=== PATIENT | female | born 1975 | race Two or more races ===

== ENCOUNTER 2017-02-28 00:10 | Observation (INO) | payer BC, OTHER ==
--- NOTE | 2017-02-28 01:23 | PDOC ---
History of Present Illness - General History Source: Patient Exam Limitations: No Limitations - History of Present Illness Initial Comments: 02/28/17 01:38 The patient is a 42 year old female with significant past medical history of recently diagnosed with hypertension who presents to the ED for mid sternal chest pressure few hours prior to arrival. Patient reports her chest pressure radiates up to her neck. She endorses SOB. States she never experience similar symptoms in the past. States about 1 hour prior to arrival, she was not feeling well and decided to take 81 mg aspirin and subsequently felt her blood pressure and heart rate decreased. Denies diaphoresis, lightheadedness, shoulder pain, arm pain, leg swelling, nausea, or vomiting. Patient reports 2 weeks ago she was walking to the bathroom when she had a syncopal episode. Subsequently, she visited her PMD where she had cardio work up done including a ECHO. Patient was informed that she had a mitral valve prolapse. At that time, she was started on metoprolol because she was noted to have elevated blood pressure and fast heart rate. She was referred to be seen by Dr. Ha, fire medic, who she has not seen yet. The patient denies fever, chills, cough, abdominal pain, and diarrhea. Allergies: penicillin Social History: No alcohol, tobacco, or drug use reported. Past Surgical History: None reported PCP: Dr. Chito Mendoza <Sue Blanco - Last Filed: 02/28/17 04:00> - General History Source: Patient <Nikki Alexan - Last Filed: 02/28/17 19:20> - General Chief Complaint: Chest Pain Stated Complaint: CHEST PRESSURE Time Seen by Provider: 02/28/17 01:23 Past History <Sue Blanco - Last Filed: 02/28/17 04:00> - Psycho/Social/Smoking Cessation Hx Suicidal Ideation: No Smoking History: Never smoked Have you smoked in the past 12 months: No Information on smoking cessation initiated: No Hx Alcohol Use: No Drug/Substance Use Hx: No <Hieu Alex - Last Filed: 02/28/17 19:20> - Past Medical History Allergies/Adverse Reactions: Allergies Allergy/AdvReac Type Severity Reaction Status Date / Time Penicillins Allergy Verified 02/28/17 01:13 Home Medications: Ambulatory Orders Metoprolol Succinate [Toprol Xl -] 25 mg PO DAILY 02/28/17 Review of Systems - Review of Systems Able to Perform ROS?: Yes Comments:: 02/28/17 01:38 CONSTITUTIONAL: Absent: fever, chills, diaphoresis, generalized weakness, malaise, loss of appetite HEENT: Absent: rhinorrhea, nasal congestion, throat pain, throat swelling, difficulty swallowing, mouth swelling, ear pain, eye pain, visual Changes CARDIOVASCULAR: +chest pressure radiating up the neck, low blood pressure and low heart rate Absent: palpitations, lightheadedness, peripheral edema RESPIRATORY: Absent: cough, shortness of breath, dyspnea with exertion, orthopnea, wheezing, stridor, hemoptysis GASTROINTESTINAL: Absent: abdominal pain, abdominal distension, nausea, vomiting, diarrhea, constipation, melena, hematochezia GENITOURINARY: Absent: dysuria, frequency, urgency, hesitancy, hematuria, flank pain, genital pain MUSCULOSKELETAL: Absent: myalgia, arthralgia, joint swelling SKIN: Absent: rash, itching, pallor NEUROLOGIC: Absent: headache, focal weakness or paresthesias, dizziness, unsteady gait, seizure, mental status changes, bladder or bowel incontinence <Sue Blanco - Last Filed: 02/28/17 04:00> *Physical Exam - Vital Signs Last Vital Signs Temp Pulse Resp BP Pulse Ox 98.3 F 72 20 168/93 100 02/28/17 01:13 02/28/17 01:13 02/28/17 01:13 02/28/17 01:13 02/28/17 01:13 - Physical Exam Comments: 02/28/17 01:39 GENERAL: Well developed, well nourished. Awake and alert. No acute distress. HEENT: Normocephalic, atraumatic. PERRLA, EOMI. No conjunctival pallor. Sclera are non- icteric. Moist mucous membranes. Oropharynx is clear. NECK: Supple. Full ROM. No JVD. Carotid pulses 2+ and symmetric, without bruits. No thyromegaly. No lymphadenopathy. CARDIOVASCULAR: Regular rate and rhythm. No murmurs, rubs, or gallops. Distal pulses are 2+ and symmetric. PULMONARY: No evidence of respiratory distress. Lungs clear to auscultation bilaterally. No wheezing, rales or rhonchi. ABDOMINAL: Soft. Non-tender. Non-distended. No rebound or guarding. No organomegaly. Normoactive bowel sounds. MUSCULOSKELETAL Normal range of motion at all joints. No bony deformities or tenderness. No CVA tenderness. EXTREMITIES: No cyanosis. No clubbing. No edema. No calf tenderness. SKIN: Warm and dry. Normal capillary refill. No rashes. No jaundice. NEUROLOGICAL: Alert, awake, appropriate. Cranial nerves 2-12 intact. No deficits to light touch and temperature in face, upper extremities and lower extremities. No motor deficits in the in face, upper extremities and lower extremities. Normoreflexic in the upper and lower extremities. Normal speech. <Sue Blanco - Last Filed: 02/28/17 04:00> - Vital Signs Last Vital Signs Temp Pulse Resp BP Pulse Ox 98.3 F 72 20 168/93 100 02/28/17 01:13 02/28/17 01:13 02/28/17 01:13 02/28/17 01:13 02/28/17 01:13 <Hieu Alex - Last Filed: 02/28/17 19:20> Heart Score/ECG Review - ECG Impressions Comment:: 02/28/17 01:45 NSR @75bpm Normal ECG <Sue Blanco - Last Filed: 02/28/17 04:00> ED Treatment Course - LABORATORY CBC & Chemistry Diagram: 02/28/17 01:42 02/28/17 01:42 <Sue Blanco - Last Filed: 02/28/17 04:00> - LABORATORY CBC & Chemistry Diagram: 02/28/17 01:42 02/28/17 01:42 <Hieu Alex - Last Filed: 02/28/17 19:20> Medical Decision Making - Medical Decision Making 02/28/17 02:[address] Chito Mendoza (via answering service) at 2:35 Awaiting call back 02/28/17 03:36 Second call placed to Dr. Mendoza (via answering service) at 3:36 Awaiting call back 02/28/17 04:00 Patient's case discussed with Dr. Mendoza at 4:00 <Sue Blanco - Last Filed: 02/28/17 04:00> - Medical Decision Making 02/28/17 19:18 Dr. Alex: The scribe's documentation has been prepared under my direction and personally reviewed by me in its entirery. I confirm that the note above accurately reflects all work, treatment, procedures, and medical decision making performed by me. Cardiac enzymes are negative. However patient's blood pressure. Patient admit for cardiac evaluation, and monitoring of blood pressure <Hieu Alex - Last Filed: 02/28/17 19:20> *DC/Admit/Observation/Transfer - Attestations Scribe Attestion: 02/28/17 01:39 Documentation prepared by Sue Blanco, acting as medical asst for Hieu Alex MD/DO. <Sue Blanco - Last Filed: 02/28/17 04:00> - Discharge Dispostion Admit: Yes <Hieu Alex - Last Filed: 02/28/17 19:20> Diagnosis at time of Disposition: Chest pain Qualifiers: Chest pain type: unspecified Qualified Code(s): R07.9 - Chest pain, unspecified - Referrals
[2017-02-28] MEDS ORDERED: ASPIRIN 81 MG CHEWABLE TABLETS ONE (01:24)
[2017-02-28 01:25] VITALS: BMI 22.7
[2017-02-28 01:52] LABS: BASOPHIL 0.5 % (0-2.0); EOSINOPHIL 1.9 % (0-4.5); MEAN CELL VOLUME 67.6 fl (80-96); NEUTROPHILS 49.5 % (42.8-82.8); PLATELET COUNT 213 K/MM3 (134-434); WHITE BLOOD COUNT 8.7 K/mm3 (4.0-10.0)
[2017-02-28 02:03] LABS: INR 1.1 (0.82-1.09); PROTHROMBIN TIME (PATIENT) 12.1 SEC (9.98-11.88)
[2017-02-28 02:13] LABS: ALBUMIN 3.8 g/dl (3.4-5.0); ANION GAP 10 (8-16); CALCIUM 8.7 mg/dL (8.5-10.1); CO2 28 mmol/L (21-32); CREATININE 0.8 mg/dL (0.55-1.02); GLUCOSE,RANDOM 114 mg/dL (74-106); MAGNESIUM 2.2 mg/dL (1.8-2.4); SGOT/AST 18 U/L (15-37); SGPT/ALT 25 U/L (12-78); TOT PROT 7.1 g/dl (6.4-8.2)
[2017-02-28 02:13] LABS: URINE APPEARANCE CLEAR; URINE BILIRUBIN NEGATIVE (NEGATIVE); URINE COLOR COLORLESS; URINE GLUCOSE (UA) NEGATIVE (NEGATIVE); URINE KETONE NEGATIVE (NEGATIVE); URINE NITRITE NEGATIVE (NEGATIVE); URINE PROTEIN NEGATIVE (NEGATIVE); URINE UROBILINOGEN NEGATIVE E.U./dl (0.2-1.0)
[2017-02-28 02:15] LABS: URINE BLOOD 3+ (NEGATIVE); URINE LEUK ESTERASE TRACE (NEGATIVE)
[2017-02-28 02:16] LABS: URINE BACTERIA RARE /hpf (NONE SEEN); URINE RBC 49 /hpf (0-3); URINE WBC 3 /hpf (3-5)
[2017-02-28 02:17] LABS: ALK PHOS 103 U/L (45-117); BILIRUBIN,TOTAL 0.3 mg/dL (0.2-1.0); TROPONIN I < 0.02 ng/ml (0.00-0.05)
[2017-02-28] MEDS ORDERED: METOPROLOL TARTRATE 5 MG/5 ML VIAL IVPUSH ONE (02:34)
[2017-02-28 05:14] LABS: ANISOCYTOSIS 2+; HYPOCHROMIA 2+; MICROCYTOSIS 2+; OVALOCYTES 1+; POLYCHROMASIA 1+
[2017-02-28] MEDS ORDERED: ACETAMINOPHEN 325 MG TABLET (FP) PO PRN (05:54)
[2017-02-28 09:16] LABS: TROPONIN I < 0.02 ng/ml (0.00-0.05)
--- NOTE | 2017-02-28 09:23 | HP ---
Admitting History and Physical - Primary Care Physician PCP: Chito Mendoza - Admission Chief Complaint: chest tightness History of Present Illness: yesterday evening developed chest tighness and pressure radiating to her neck, BP was 160/100, HR 54 at home. took antacid and eccedrin without help, pain continued so pt came to er. still has pain-describes as heart working too hard especially when she changes position radiating towards neck and back. no nausea, no vomiting, no LOC History Source: Patient Limitations to Obtaining History: No Limitations - Past Medical History Cardiovascular: Yes: HTN (pt developed higher blood pressures past 2 weeks, was started on metoprolol) ...: No - Past Surgical History Past Surgical History: Yes: Appendectomy - Smoking History Smoking history: Never smoked Have you smoked in the past 12 months: No - Alcohol/Substance Use Hx Alcohol Use: No - Social History Usual Living Arrangement: Yes: With Spouse ADL: Independent History of Recent Travel: No Home Medications - Allergies Allergies/Adverse Reactions: Allergies Allergy/AdvReac Type Severity Reaction Status Date / Time Penicillins Allergy Verified 02/28/17 01:13 - Home Medications Home Medications: Ambulatory Orders Metoprolol Succinate [Toprol Xl -] 25 mg PO DAILY 02/28/17 Family Disease History - Family Disease History Family History: Denies Review of Systems - Review of Systems Constitutional: reports: Lethargy, Weakness Eyes: reports: No Symptoms HENT: reports: No Symptoms Neck: reports: No Symptoms Cardiovascular: reports: Chest Pain, Palpitations (as noted in history) Respiratory: reports: No Symptoms Gastrointestinal: reports: No Symptoms Genitourinary: reports: No Symptoms Integumentary: reports: No Symptoms Neurological: reports: No Symptoms Endocrine: reports: No Symptoms Hematology/Lymphatic: reports: No Symptoms Psychiatric: reports: Other (has had less energy and feels more down lately) Physical Examination Vital Signs: Vital Signs Temperature 98.7 F 02/28/17 07:54 Pulse Rate 76 02/28/17 07:54 Respiratory Rate 20 02/28/17 07:54 Blood Pressure 139/91 02/28/17 07:54 O2 Sat by Pulse Oximetry (%) 99 02/28/17 04:13 Constitutional: Yes: Well Nourished, Calm Eyes: Yes: Conjunctiva Clear HENT: Yes: Normocephalic Neck: Yes: Trachea Midline Cardiovascular: Yes: Regular Rate and Rhythm Respiratory: Yes: CTA Bilaterally Gastrointestinal: Yes: Normal Bowel Sounds, Soft Edema: No Peripheral Pulses WNL: Yes Imaging - Results Chest X-ray: Image Reviewed EKG: Image Reviewed Problem List - Problems (1) Chest pain Code(s): R07.9 - CHEST PAIN, UNSPECIFIED Qualifiers: Chest pain type: unspecified Qualified Code(s): R07.9 - Chest pain, unspecified Assessment/Plan first set of cardiac enzyme is negative, EKG looks well due to radiating nature of pain CTA r/o dissection may need stress test afterwards cardiac evaluation low dose metoprolol
--- NOTE | 2017-02-28 10:20 | CONSULT ---
Consult - text type - Consultation Consultation Note: Cardiology 41 year old female syncope 2 weeks ago, in bathroom, with maybe chest pressure mild URI SX Since, yesterday, chest pressure, dyspnea and palp. social: NA allergy: NA FH: NA Op: appy PMH: ? HTN PE: vitals stable normal cardio-pulmonary exam abdomen soft no leg edema CXR unremarkable Impression: atypical cardiac symptoms no evidence of [place] trop negative EKG have'nt seen, but normal as per ED chart getting CTA now Rec: Echocardiogram Nuclear stress test
[2017-02-28] MEDS: METOPROLOL TARTRATE 25 MG TABLET (FP) PO SCH (11:05)
[2017-03-01 06:34] VITALS: TEMP 97.3
[2017-03-01 08:52] LABS: ALBUMIN 3.7 g/dl (3.4-5.0); ALK PHOS 101 U/L (45-117); ANION GAP 8 (8-16); BILIRUBIN,TOTAL 0.8 mg/dL (0.2-1.0); CALCIUM 8.4 mg/dL (8.5-10.1); CO2 27 mmol/L (21-32); COCKROFT - GAULT 110.9165; CREATININE 0.7 mg/dL (0.55-1.02); GLUCOSE,RANDOM 89 mg/dL (74-106); SGOT/AST 17 U/L (15-37); SGPT/ALT 23 U/L (12-78)
[2017-03-01] MEDS: METOPROLOL TARTRATE 25 MG TABLET (FP) PO SCH ×2 (09:39→12:37)
[2017-03-01] MEDS ORDERED: DIPYRIDAMOLE STRESS TEST IVPB ONE ×2 (10:00→10:35)
[2017-03-01] MEDS ORDERED: WATER IVPB ONE ×2 (10:00→10:35)
[2017-03-01] MEDS ORDERED: DEXTROSE 5% IVPB ONE ×2 (10:00→10:35)
--- NOTE | 2017-03-01 10:07 | PN ---
Progress Note (short form) - Note Progress Note: Feels well now. CBC, BMP 02/28/17 01:42 03/01/17 06:00 S1S2 RRR Lungs cta abd soft NT no edema Imp chest pain, tightness HTN Plan awaiting stress test today, if negative dc home and f/up as outpt Problem List - Problems (1) Chest pain Code(s): R07.9 - CHEST PAIN, UNSPECIFIED Qualifiers: Chest pain type: unspecified Qualified Code(s): R07.9 - Chest pain, unspecified
[2017-03-01 12:18] VITALS: BP 142/79; PULSE 84
--- NOTE | 2017-03-01 14:24 | DS ---
Physical Examination Vital Signs: Vital Signs Temperature 97.3 F L 03/01/17 10:00 Pulse Rate 84 03/01/17 10:00 Respiratory Rate 20 03/01/17 10:00 Blood Pressure 142/79 03/01/17 10:00 O2 Sat by Pulse Oximetry (%) 99 03/01/17 09:00 Constitutional: Yes: No Distress Eyes: Yes: EOM Intact HENT: Yes: Normocephalic Neck: Yes: Trachea Midline Cardiovascular: Yes: Regular Rate and Rhythm Respiratory: Yes: CTA Bilaterally Gastrointestinal: Yes: Normal Bowel Sounds, Soft Labs: CBC, BMP 03/01/17 06:00 Discharge Summary Reason For Visit: CHEST PAIN Current Active Problems Chest pain (Acute) Hospital Course: Admitted for chest pain radiating to back and neck, CTA chest and bnclear stress test normal. Pain resolved, medically stable to discharge home with outpt follow up. Condition: Good - Instructions Diet, Activity, Other Instructions: f/up with in 1 week Referrals: Chito Mendoza MD [Primary Care Provider] - Disposition: HOME - Home Medications Comprehensive Discharge Medication List: Ambulatory Orders Alprazolam [Xanax] 0.25 mg PO DAILY PRN #5 tablet MDD 1 03/01/17 Metoprolol Tartrate [Lopressor -] 25 mg PO DAILY #30 tablet 03/01/17
--- NOTE | 2017-03-01 16:33 | EKG ---
Test Reason : Blood Pressure : / mmHG Vent. Rate : 075 BPM Atrial Rate : 075 BPM P-R Int : 152 ms QRS Dur : 094 ms QT Int : 392 ms P-R-T Axes : 038 016 008 degrees QTc Int : 437 ms NORMAL SINUS RHYTHM NORMAL ECG NO PREVIOUS ECGS AVAILABLE Confirmed by BRITTANIE SAINZ MD ([id number]) on 03/01/2017 4:32:40 PM Referred By: Confirmed By:BRITTANIE SAINZ MD
== END 2017-03-01 15:41 | disposition home or self-care (01) ==
LOC: JER 00:10 → JERBED 02:36 → UNDOADMOB 02:36 → INTOOBSV 02:36 → UNDOADMIN 02:39 → JERBED 02:39 → J4W 03:48 → JERBED 03:48 → J4W 09:14
PROVIDERS: ADMIT Internal Medicine; ATTEND Internal Medicine
PROC: 3E033GC Introduction of Other Therapeutic Substance into Peripheral Vein, Percutaneous Approach (ICD-10-PCS; principal; 2017-02-28)
DX: R07.9 Chest pain, unspecified (principal); I10 Essential (primary) hypertension; Z88.0 Allergy status to penicillin
CPT/HCPCS: 36415; 71010-TC; 71275-TC; 78452-TC; 80053; 81003; 81015; 82550; 83690; 83735; 84484; 84703; 85025; 85610; 93005; 93010; 93017; 99285-25; A9502; G0378; J1245

== ENCOUNTER 2017-03-09 11:25 | Emergency (ER) | payer OTHER ==
[2017-03-09 11:29] VITALS: TEMP 98.1; BMI 23.5
--- NOTE | 2017-03-09 12:01 | PDOC ---
History of Present Illness - General History Source: Patient Exam Limitations: No Limitations - History of Present Illness Initial Comments: 03/09/17 12:17 The patient is a 42 year old female, with significant past medical history of HTN, who presents today complaining of a 3 days of a gradually worsening headache. She describes the headache as a throbbing pain that is accompanied by dizziness, sweats, and nausea. She denies vomiting. She states that this headache is similar to headaches she has experienced in the past, for which she usually takes sinus medication or excedrin. She was hesitant to take medication for this headache, due to her new HTN medications. She has used tylenol with mild relief. The patient has a second complaint of yellow vaginal discharge with a foul odor , and mild pelvic pain. She has had these symptoms in the past and was prescribed metrondiazole gel that was effective. The patient is and states there is no possibility of STDs. Allergies: Penicillins Surgical Hx: appendectomy PCP- Dr. Chito Mendoza <Alissa Dumont - Last Filed: 03/09/17 12:20> - General History Source: Patient Exam Limitations: No Limitations <Lisbeth Cook - Last Filed: 03/09/17 14:38> - General Chief Complaint: Headache Stated Complaint: HIGH BP Time Seen by Provider: 03/09/17 11:44 Past History <Alissa Dumont - Last Filed: 03/09/17 12:20> - Past Medical History Anemia: No Asthma: No Cancer: No Cardiac Disorders: Yes (MVP.) CVA: No COPD: No CHF: No Dementia: No Diabetes: No GI Disorders: No Disorders: No HTN: Yes Hypercholesterolemia: No Liver Disease: No Seizures: No Thyroid Disease: No - Surgical History Abdominal Surgery: Yes Appendectomy: Yes Cardiac Surgery: No Cholecystectomy: No Lung Surgery: No Neurologic Surgery: No Orthopedic Surgery: No - Psycho/Social/Smoking Cessation Hx Anxiety: No Suicidal Ideation: No Smoking History: Never smoked Have you smoked in the past 12 months: No Hx Alcohol Use: No Drug/Substance Use Hx: No Substance Use Type: None Hx Substance Use Treatment: No <Lisbeth Cook - Last Filed: 03/09/17 14:38> - Past Medical History Allergies/Adverse Reactions: Allergies Allergy/AdvReac Type Severity Reaction Status Date / Time Penicillins Allergy Verified 03/09/17 11:26 Home Medications: Ambulatory Orders Metoprolol Tartrate [Lopressor -] 25 mg PO DAILY #30 tablet 03/01/17 Acetaminophen/Caffeine/Butalb [Fioricet -] 1 tab PO TID PRN #28 tablet MDD 3 06/17 Metronidazole 0.75% Vag. Gel [Metrogel 0.75% Vaginal Gel -] 1 applic VG HS #1 tube 03/09/17 Review of Systems - Review of Systems Able to Perform ROS?: Yes Comments:: 03/09/17 12:17 GENERAL/CONSTITUTIONAL: No: fever, chills, weakness, loss of appetite. HEAD, EYES, EARS, NOSE AND THROAT: No: change in vision, ear pain, discharge, sore throat, throat swelling. CARDIOVASCULAR: No: chest pain, lightheadedness, palpitations, syncope RESPIRATORY: No: cough, shortness of breath, wheezing, hemoptysis, stridor. GASTROINTESTINAL: Yes: nausea No: vomiting, abdominal cramping, diarrhea, rectal bleeding, constipation. GENITOURINARY: No: dysuria, hematuria, frequency, urgency, flank pain. PELVIC: yes: yellow vaginal discharge with foul odor, mild pelvic pain. MUSCULOSKELETAL: No: back pain, neck pain, joint pain, muscle swelling or pain SKIN: No: lesions, pallor, rash or easy bruising. NEUROLOGIC: Yes: headache x 2 days, dizziness. No: vertigo, paresthesias, weakness ENDOCRINE: No: unexplained weight gain or loss HEMATOLOGIC/LYMPHATIC: No: anemia, easy bleeding, swelling nodes <Alissa Dumont - Last Filed: 03/09/17 12:20> *Physical Exam - Vital Signs Last Vital Signs Temp Pulse Resp BP Pulse Ox 98.1 F 82 18 129/86 100 03/09/17 11:26 03/09/17 11:26 03/09/17 11:26 03/09/17 11:03/09/17 11:26 - Physical Exam Comments: 03/09/17 12:19 GENERAL: The patient is in no acute distress. HEAD: Normal with no signs of trauma. EYES: PERRLA, EOMI, sclera anicteric, conjunctiva clear. ENT: Ears normal, nares patent, oropharynx clear without exudates. Moist mucous membranes. NECK: Normal range of motion, supple without lymphadenopathy, JVD, or masses. LUNGS: Breath sounds equal, clear to auscultation bilaterally. No wheezes, and no crackles. HEART:Regular rate and rhythm, normal S1 and S2 without murmur, rub or gallop. ABDOMEN: Soft, nontender, normoactive bowel sounds. No guarding, no rebound. EXTREMITIES: Normal range of motion, no edema. No clubbing or cyanosis. No erythema, or tenderness. NEUROLOGICAL: Cranial nerves II through XII grossly intact. Normal speech. No focal neurological deficits. MUSCULOSKELETAL: Back nontender to palpation, no CVA tenderness SKIN: Warm, Dry, normal turgor, no rashes or lesions noted. <Alissa Dumont - Last Filed: 03/09/17 12:20> - Vital Signs Last Vital Signs Temp Pulse Resp BP Pulse Ox 98.1 F 82 18 129/86 100 03/09/17 11:26 03/09/17 11:26 03/09/17 11:26 03/09/17 11:26 03/09/17 11:26 <Lisbeth Cook - Last Filed: 03/09/17 14:38> ED Treatment Course - ADDITIONAL ORDERS Additional order review: Laboratory Results 03/09/17 12:04 Urine HCG, Qual Negative <Alissa Dumont - Last Filed: 03/09/17 12:20> - LABORATORY CBC & Chemistry Diagram: 03/09/17 12:18 03/09/17 12:18 <Lisbeth Cook - Last Filed: 03/09/17 14:38> Medical Decision Making - Medical Decision Making 03/09/17 12:00 A portion of this note was documented by scribe services under my direction. I have reviewed the details of the note, within reason, and agree with the documentation with the following case summary and management plan written by me. Nursing documentation reviewed and incorporated into medical decision making 03/09/17 13:37 This patient is a 42-year-old female with a recent diagnosis of hypertension who was recently admitted and discharged from the hospital for chest pain (( workup included a nuclear stress test which was negative and CTA which was also negative) disease. Although patient has been compliant with her antihypertensives, she presents to the emergency Department today due to complaint of right-sided headache. Patient states her symptoms began approximately 3 days ago, while doing nothing in particular. She noted a gradual onset of throbbing pain in her head. She has had similar symptoms in the past, typically takes Excedrin however did not take any medications because she was afraid Excedrin would interact with her antihypertensive. Patient notes right-sided facial pain, nausea, chills. She denies head trauma. This headache feels like prior headaches. She has noted no focal weakness or numbness. Exam normal DD: Migraine, Tension headache, PT given Reglan, IVF, Magnesium, Tylenol I don't believe this patient needs a head CT Will reassess 03/09/17 13:41 Laboratory Tests 03/09/17 03/09/17 03/09/17 12:04 12:18 12:18 WBC 7.9 Hgb 11.2 Hct 35.6 Plt Count 194 BUN 7 D Creatinine 0.7 Urine Blood Negative Ur Leukocyte Esterase 1+ H Urine RBC 13 Urine WBC 4 03/09/17 14:32 Patient states her headache was still present but improved She was then given Fiorecet Pt feels much better will: D/c to home Will give prescription for Fiorecet Pt also given prescription for Metro gel Return to the ER for any other concerns or complaints <Lisbeth Cook - Last Filed: 03/09/17 14:38> *DC/Admit/Observation/Transfer - Attestations Scribe Attestion: Documentation prepared by NOEMY Yang, acting as biomedical engineering technician for Lisbeth Cook MD. 03/09/17 12:20 <Alissa Dumont - Last Filed: 03/09/17 12:20> - Discharge Dispostion Admit: No <Lisbeth Cook - Last Filed: 03/09/17 14:38> Diagnosis at time of Disposition: Migraine Qualifiers: Migraine type: other Status migrainosus presence: without status migrainosus Intractability: not intractable Qualified Code(s): G43.809 - Other migraine, not intractable, without status migrainosus - Discharge Dispostion Disposition: HOME Condition at time of disposition: Stable - Prescriptions Prescriptions: Acetaminophen/Caffeine/Butalb [Fioricet -] 1 tab PO TID PRN #28 tablet MDD 3 PRN Reason: Headache Metronidazole 0.75% Vag. Gel [Metrogel 0.75% Vaginal Gel -] 1 applic VG HS #1 tube - Referrals Referrals: Chito Mendoza MD [Primary Care Provider] - Rogelio Ashby MD [Staff Physician] - - Patient Instructions Printed Discharge Instructions: DI for Migraine Additional Instructions: Thank you for coming in to the ER today Please take Excedrin for headaches as you previously had been doing. If you need a decongestant, please use Coricidin per crutch maker's instructions. If you have more severe headache, please take Fioricet as prescribed Please return to the emergency department for any other concerns or complaints, any new symptoms. - Post Discharge Activity Work/School Note: Back to Work
[2017-03-09 12:13] LABS: URINE APPEARANCE TURBID; URINE BILIRUBIN NEGATIVE (NEGATIVE); URINE BLOOD NEGATIVE (NEGATIVE); URINE COLOR YELLOW; URINE GLUCOSE (UA) NEGATIVE (NEGATIVE); URINE KETONE NEGATIVE (NEGATIVE); URINE NITRITE NEGATIVE (NEGATIVE); URINE UROBILINOGEN NEGATIVE E.U./dl (0.2-1.0)
[2017-03-09] MEDS ORDERED: ACETAMINOPHEN 1000 MG/100 ML VIAL (NON FORMULARY) IVPB ONE (12:13)
[2017-03-09] MEDS ORDERED: MAGNESIUM SULF 50% (8.12 MEQ/2 ML-1 GM VIAL) IVPB ONE (12:13)
[2017-03-09] MEDS ORDERED: METOCLOPRAMIDE HCL INJECTION 10 MG/2 ML VIAL IVPB ONE (12:13)
[2017-03-09] MEDS ORDERED: ACETAMINOPHEN INJECTION 100 ML IVPB ONE (12:22)
[2017-03-09] MEDS ORDERED: METOCLOPRAMIDE HCL INJECTION 10 MG/2 ML VIAL ONE (12:22)
[2017-03-09] MEDS ORDERED: MAGNESIUM SULF 50% (8.12 MEQ/2 ML-1 GM VIAL) ONE (12:22)
[2017-03-09 12:25] LABS: BASOPHIL 2.1 % (0-2.0); EOSINOPHIL 0.6 % (0-4.5); MCH 21.3 pg (25.7-33.7); MCHC 31.5 g/dl (32.0-36.0); MEAN CELL VOLUME 67.5 fl (80-96); MEAN PLT VOLUME 7.8 fl (7.5-11.1); NEUTROPHILS 73.6 % (42.8-82.8); PLATELET COUNT 194 K/MM3 (134-434); RDW 15.5 % (11.6-15.6); WHITE BLOOD COUNT 7.9 K/mm3 (4.0-10.0)
[2017-03-09 12:29] LABS: URINE LEUK ESTERASE 1+ (NEGATIVE); URINE PROTEIN 1+ (NEGATIVE)
[2017-03-09 12:30] LABS: CALCIUM OXALATE CRYSTALS RARE /hpf (NONE SEEN); URINE RBC 13 /hpf (0-3); URINE WBC 4 /hpf (3-5)
[2017-03-09 12:52] LABS: CALCIUM 9.1 mg/dL (8.5-10.1); COCKROFT - GAULT 114.7415; CREATININE 0.7 mg/dL (0.55-1.02)
[2017-03-09 12:58] LABS: ANISOCYTOSIS 1+; HYPOCHROMIA 1+; MICROCYTOSIS 1+; OVALOCYTES 1+; PLATELET ESTIMATE ADEQUATE (NORMAL)
[2017-03-09] MEDS ORDERED: ACETAMINOPHEN/CAFFEINE/BUTALBITAL 1 TAB PO ONE (13:46)
[2017-03-09] MEDS ORDERED: ACETAMINOPHEN/CAFFEINE/BUTALBITAL 1 TAB ONE (13:50)
[2017-03-09 13:55] VITALS: BP 133/74; PULSE 75
== END 2017-03-09 14:54 | disposition home or self-care (01) ==
LOC: JER 11:25 → SUPCPDRO 11:25 → JER 14:54
PROC: 3E033NZ Introduction of Analgesics, Hypnotics, Sedatives into Peripheral Vein, Percutaneous Approach (ICD-10-PCS; principal; 2017-03-09)
PROC: 3E033GC Introduction of Other Therapeutic Substance into Peripheral Vein, Percutaneous Approach (ICD-10-PCS; 2017-03-09)
DX: G43.809 Other migraine, not intractable, without status migrainosus (principal); I10 Essential (primary) hypertension
CPT/HCPCS: 36415; 80048; 81003; 81015; 84703; 85025; 87491; 87591; 99284-25

== ENCOUNTER 2018-06-02 13:37 | Emergency (ER) | payer OTHER ==
[2018-06-02 13:41] VITALS: BP 148/93; PULSE 85; TEMP 98.3; BMI 23.5
--- NOTE | 2018-06-02 13:56 | PDOC ---
History of Present Illness - General Chief Complaint: Psychiatric Stated Complaint: PALPITATIONS Time Seen by Provider: 06/02/18 13:55 History Source: Patient Exam Limitations: No Limitations - History of Present Illness Initial Comments: Patient came to emergency department, accompanied by and 2 young daughters, for evaluation of panic attacks and palpitations. Has multiple complaints including intermittent headache, intermittent dizziness, and feelings of hyperventilation and panic "I think sometimes I'm going crazy". Patient was admitted last year for palpitations and chest pain. Was discharged on Lopressor and also found to have a large kidney stone which needed lithotripsy for resolution. Completed that coarse with no consequence. Lopressor and then increased dosing ekes ago however patient feels has not helped Dr. driver acute ischemic provided her some anti-anxiolytics last year which she used but did not receive any further contacts. Patient has never sought attention at a psychiatrist/therapist. Denies homicidal or suicidal ideation although states feels increasing discomfort and problems resolving children's issues. Denies family history of psychiatric illness. 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 Timing/Duration: constant, changing over time, getting worse Severity: mild, moderate Associated Symptoms: anxiety Past History - Past Medical History Allergies/Adverse Reactions: Allergies Penicillins Allergy (Verified 06/02/18 13:41) Home Medications: Ambulatory Orders Metoprolol Tartrate [Lopressor -] 25 mg PO DAILY #30 tablet 03/01/17 hydrOXYzine PAMOATE [Vistaril -] 25 mg PO QID #20 capsule 06/02/18 Psychosocial History: Yes: anxiety, panic attacks, hypertension, other (mitral valve prolapse) Surgical History: Yes: Other (lithotripy) - Family History Significant Family History: Yes: no pertinent family hx - Reproductive History Is Patient Now?: No - Social History Smoking Status: Never smoked *Review of Systems - Review of Systems Able to Perform ROS?: No Constitutional: Yes: Symptoms Reported, See HPI, Malaise HEENTM: Yes: See HPI. No: Symptoms Reported, Nose Pain Respiratory: Yes: See HPI. No: Symptoms reported, Cough Cardiac (ROS): Yes: Symptoms Reported, See HPI, Palpitations ABD/GI: Yes: Symptoms Reported, See HPI, Nausea, Abdominal cramping ( intermittant/ LLQ cramping and heavy menses. ). No: Constipated : Yes: See HPI. No: Symptoms Reported, Burning, Dysuria Musculoskeletal: Yes: See HPI. No: Symptoms Reported, Back Pain Integumentary: No: Symptoms Reported Neurological: Yes: Symptoms reported, See HPI, Headache All Other Systems: Reviewed and Negative *Physical Exam - Vital Signs Last Vital Signs Temp Pulse Resp BP Pulse Ox 98.3 F 85 18 148/93 99 06/02/18 13:39 06/02/18 13:39 06/02/18 13:39 06/02/18 13:39 06/02/18 13:39 - Physical Exam General Appearance: Yes: Nourished, Appropriately Dressed, Apparent Distress, Mild Distress HEENT: positive: ESTELITA, Normal ENT Inspection, TMs Normal, Pharynx Normal Neck: positive: Supple. negative: Tender, Lymphadenopathy (R), Lymphadenopathy (L) Respiratory/Chest: positive: Lungs Clear, Normal Breath Sounds Cardiovascular: positive: Regular Rhythm, Regular Rate Gastrointestinal/Abdominal: positive: Normal Bowel Sounds, Soft. negative: Tender Musculoskeletal: positive: Normal Inspection. negative: CVA Tenderness Extremity: positive: Normal Capillary Refill, Normal Inspection. negative: Tender Integumentary: positive: Dry, Warm, Pale Neurologic: positive: admissions manager rn II-XII NML intact, Fully Oriented, Alert, Normal Response Plan - Progress Note Progress Note: 06/02/18 19:56 Reviewed all of labs with patient including thyroid studies which show to be relatively normal. Encouraged patient to follow-up with multiple referral numbers including internal medicine Dr. Borges or deputy sheriff generalist/bailiff and thorough physical exam, zan Ford NP for psychiatric evaluation. And Dr. Triana or his group for cardiology analysis and review of hypertension and mitral valve issues. Patient understands plan, understands will take antihistamines including Vistaril or Benadryl for mild sedate of treatment and understands to return to emergency department immediately if symptomatology worsens or other untoward effects. - Laboratory CBC & Chemistry Diagram: 06/02/18 14:47 06/02/18 14:47 Comment: EKG normal sinus rhythm, without ischemic changes, no arrhythmias, normal *DC/Admit/Observation/Transfer Diagnosis at time of Disposition: Anxiety - Discharge Dispostion Disposition: HOME Condition at time of disposition: Stable Decision to Admit order: No - Prescriptions Prescriptions: hydrOXYzine PAMOATE [Vistaril -] 25 mg PO QID #20 capsule - Referrals Referrals: Jayme Ford NP [Nurse Practitioner] - Bert Baron MD [Staff Physician] - Jessica Borges [Staff Physician] - - Patient Instructions Printed Discharge Instructions: DI for Anxiety -- Adult, DI for Palpitations Additional Instructions: Rest, no strenuous activity or exercise until symptoms resolved Keep well hydrated with water, non-caffeinated beverages. Avoid stressful environments May use Benadryl or Vistaril 25 mg tablet every 8 hours as needed for gentle sedative effects Make appointment with general practitioner for complete and thorough physical Would recommend appointment with communications controller to discuss palpitations and metoprolol medication Make appointment with psychiatry/therapist to review symptoms of panic and anxiety with possible recommendations for medication or other therapy - Post Discharge Activity Forms/Work/School Notes: Back to Work
[2018-06-02 15:02] LABS: BASO % 0.2 % (0-2.0); EOS % 1.8 % (0-4.5); HEMATOCRIT 37.4 % (32.4-45.2); HEMOGLOBIN 11.8 GM/dL (10.7-15.3); LYMPH % 39.7 % (8-40); MCH 21.7 pg (25.7-33.7); MCHC 31.6 g/dl (32.0-36.0); MEAN CELL VOLUME 68.7 fl (80-96); MEAN PLT VOLUME 8.4 fl (7.5-11.1); MONO % 6.8 % (3.8-10.2); NEUT % 51.5 % (42.8-82.8); PLATELET COUNT 233 K/MM3 (134-434); RBC 5.44 M/mm3 (3.60-5.2); RDW 14.4 % (11.6-15.6); WHITE BLOOD COUNT 6.5 K/mm3 (4.0-10.0)
[2018-06-02 15:12] LABS: URINE APPEARANCE CLEAR; URINE BILIRUBIN NEGATIVE (<2.0 mg/dL); URINE COLOR STRAW; URINE GLUCOSE (UA) NEGATIVE (NEGATIVE); URINE KETONE NEGATIVE (NEGATIVE); URINE LEUK ESTERASE NEGATIVE (NEGATIVE); URINE NITRITE NEGATIVE (NEGATIVE); URINE PROTEIN NEGATIVE (NEGATIVE); URINE UROBILINOGEN NEGATIVE mg/dL (0.2-1.0)
[2018-06-02 15:36] LABS: EPI CELLS RARE /HPF (FEW); URINE BACTERIA RARE /hpf (NONE SEEN)
[2018-06-02 15:37] LABS: ALBUMIN 3.8 g/dl (3.4-5.0); ANION GAP 5 MMOL/L (8-16); BLOOD UREA NITROGEN 10 mg/dL (7-18); CALCIUM 8.1 mg/dL (8.5-10.1); CHLORIDE 106 mmol/L (98-107); CO2 30 mmol/L (21-32); CREATININE 0.7 mg/dL (0.55-1.02); GLUCOSE,RANDOM 101 mg/dL (74-106); SGOT/AST 23 U/L (15-37); SGPT/ALT 32 U/L (12-78); SODIUM 141 mmol/L (136-145)
[2018-06-02 15:47] LABS: ALK PHOS 102 U/L (45-117); TOT PROT 7.2 g/dl (6.4-8.2)
[2018-06-02 16:09] LABS: HCG,QUALITATIVE URINE Negative
[2018-06-02 16:50] LABS: OVALOCYTE 1+; PLATELET ESTIMATE ADEQUATE
--- NOTE | 2018-06-03 13:23 | EKG ---
Test Reason : Blood Pressure : / mmHG Vent. Rate : 073 BPM Atrial Rate : 073 BPM P-R Int : 134 ms QRS Dur : 092 ms QT Int : 390 ms P-R-T Axes : 042 019 023 degrees QTc Int : 429 ms NORMAL SINUS RHYTHM NORMAL ECG WHEN COMPARED WITH ECG OF 28-FEB-2017 01:16, NO SIGNIFICANT CHANGE WAS FOUND Confirmed by LISET DANIEL MD ([id number]) on 06/03/2018 1:23:21 PM Referred By: Confirmed By:LISET DANIEL MD
== END 2018-06-02 16:00 | disposition home or self-care (01) ==
LOC: JERFT 13:37
DX: F41.8 Other specified anxiety disorders (principal); F41.0 Panic disorder [episodic paroxysmal anxiety]; I10 Essential (primary) hypertension; I34.1 Nonrheumatic mitral (valve) prolapse
CPT/HCPCS: 36415; 80053; 81003; 81015; 84443; 84479; 84703; 85025; 93005; 93010; 99282-25

== ENCOUNTER 2019-08-02 11:49 | Emergency (ER) | payer OTHER ==
[2019-08-02 12:28] VITALS: BMI 24.2
--- NOTE | 2019-08-02 12:58 | PDOC ---
History of Present Illness - General Chief Complaint: Vaginal Sxs Stated Complaint: HEADACHE/EAR ACHE Time Seen by Provider: 08/02/19 12:45 - History of Present Illness Initial Comments: Ms. Marrero is a 44 y/o female with PMH significant for heart palpitations and anxiety, presenting today for vaginal discharge. Reports that over the past 6 months she has had yellow vaginal discharge after having sexual intercourse. Reports intermittent lower abdominal pain. Denies dysuria or hematuria, but reports that she has had UTIs in the past. She has seen her PCP and was given metronidazole, which she feels did not help resolve her symptoms. She also reports mild frontal headache and lightheadedness over the past couple of days. No chest pain/shortness of breath. No falls. Reports mild nausea, no vomiting. No changes in bowel movements. No weakness. No leg swelling. Sexual Hx: monogamous with 1 male spouse, 3 kids, no STIs LNMP: 2 weeks ago Past History - Past Medical History Allergies/Adverse Reactions: Allergies Allergy/AdvReac Type Severity Reaction Status Date / Time Penicillins Allergy Verified 06/02/18 13:41 Home Medications: Ambulatory Orders Metoprolol Tartrate [Lopressor -] 50 mg PO DAILY 08/02/19 Nystatin/Triamcin [Nystatin-Triamcinolone Cream] 30 gm TP BID 7 Days #1 cream..g. 08/02/19 Anemia: Yes Asthma: No Cancer: No Cardiac Disorders: Yes (MVP.) CVA: No COPD: No CHF: No Dementia: No Diabetes: No GI Disorders: No Disorders: No HTN: Yes Hypercholesterolemia: No Liver Disease: No Psychiatric Problems: Yes (anxiety) Seizures: No Thyroid Disease: No - Surgical History Abdominal Surgery: Yes Appendectomy: Yes Cardiac Surgery: No Cholecystectomy: No Lung Surgery: No Neurologic Surgery: No Orthopedic Surgery: No - Psycho Social/Smoking Cessation Hx Smoking History: Never smoked Have you smoked in the past 12 months: No Hx Alcohol Use: No Drug/Substance Use Hx: No Substance Use Type: None Hx Substance Use Treatment: No Review of Systems - Review of Systems Comments:: GENERAL/CONSTITUTIONAL: No fever or chills. No weakness._ HEAD, EYES, EARS, NOSE AND THROAT: No change in vision. No change in hearing. No sore throat._ CARDIOVASCULAR: No chest pain or shortness of breath_ RESPIRATORY: Denies cough, hemoptysis_ GASTROINTESTINAL: Reports nausea. No vomiting, diarrhea or constipation. Lower abdominal pain. GENITOURINARY: No dysuria, frequency, or change in urination. Reports yellow vaginal discharge. No vaginal bleeding outside of regular menstrual cycle. MUSCULOSKELETAL: No joint or muscle swelling or pain. No neck or back pain._ SKIN: No rash_ NEUROLOGIC: Reports headache and lightheadedness. No vertigo, loss of consciousness, or change in strength/sensation._ ENDOCRINE: No increased thirst. No abnormal weight change_ HEMATOLOGIC/LYMPHATIC: No anemia, easy bleeding, or history of blood clots._ *Physical Exam - Vital Signs Last Vital Signs Temp Pulse Resp BP Pulse Ox 98.3 F 67 19 156/82 100 08/02/19 12:23 08/02/19 12:23 08/02/19 12:23 08/02/19 12:23 08/02/19 12:23 - Physical Exam Comments: GENERAL: Awake, alert, and oriented to person/place/time, in no acute distress_ HEAD: No signs of trauma, normocephalic, atraumatic _ EYES: PERRLA, EOMI, sclera anicteric, conjunctiva clear_ ENT: Hearing grossly normal, nares patent, oropharynx clear without exudates. No uvular deviation. Moist mucosa. TMs intact and non-erythematous bilaterally. NECK: Normal ROM, supple, no lymphadenopathy, JVD, or masses_ LUNGS: No distress, speaks in full sentences, clear to auscultation bilaterally _ HEART: Regular rate and rhythm, normal S1 and S2, no murmurs appreciated, peripheral pulses normal and equal bilaterally._ ABDOMEN: Soft, mild TTP BLQ, normoactive bowel sounds. No guarding, no rebound. No masses_ BACK: No CVA tenderness EXTREMITIES: Normal inspection, Normal range of motion, no edema. No clubbing or cyanosis_ NEUROLOGICAL: Cranial nerves II through XII grossly intact. Normal speech, normal gait, no focal sensorimotor deficits _ SKIN: Warm, Dry, normal turgor, no rashes or lesions noted_ PELVIC: External genitalia shows no lesions, rashes, or ulcers. Speculum exam shows cottage cheese discharge in the posterior fornix. No bleeding or bloody discharged. Os closed. Positive left adnexal tenderness. No cervical motion tenderness. ED Treatment Course - LABORATORY CBC & Chemistry Diagram: 08/02/19 13:24 08/02/19 13:24 Medical Decision Making - Medical Decision Making 44F hx of palpitations, , presenting with yellow non-foul smelling vaginal discharge over the past several months, worse with sexual intercourse. Also reports lightheadedness. -CBC, CMP -UA, UC, Upreg, gonorrhea/chlamydia -EKG 08/02/19 14:28 EKG shows NSR, 60 bpm, no ST elevation/depression, no axis deviation, QTc 420. 08/02/19 14:50 Labs reviewed and wnl. Upreg negative. 08/02/19 15:18 UA negative for UTI. Patient reassessed and reports feeling better. F/u PCP and OBGYN. -topical nystatin 1 week for yeast infection -reglan for headache Discharge - Discharge Information Problems reviewed: Yes Clinical Impression/Diagnosis: Yeast infection involving the vagina and surrounding area Condition: Stable Disposition: HOME - Admission No - Additional Discharge Information Prescriptions: Nystatin/Triamcin [Nystatin-Triamcinolone Cream] 30 gm TP BID 7 Days #1 cream..g. - Follow up/Referral Referrals: Chito Mendoza MD [Primary Care Provider] - Rakel Murphy DO [Staff Physician] - Shasta Mann MD [Staff Physician] - Issa Mae MD [Staff Physician] - - Patient Discharge Instructions Patient Printed Discharge Instructions: DI for Vaginal Yeast Infection Additional Instructions: Please apply the nystatin cream twice per day for 1 week. Please make an appointment with a primary care physician and an OBGYN. Referrals have been included in this packet. If you experience any new, worsening, or concerning symptoms, including headache , shortness of breath, chest pain, severe vaginal bleeding, severe nausea/ vomiting, or any other concerns, please return to the emergency department. - Post Discharge Activity
[2019-08-02] MEDS ORDERED: ACETAMINOPHEN 325 MG TABLET (FP) PO ONE (13:05)
[2019-08-02] MEDS ORDERED: ACETAMINOPHEN 325 MG TABLET (FP) ONE (13:15)
[2019-08-02 13:32] LABS: BASO % 0.5 % (0-2.0); EOS % 1.2 % (0-4.5); HEMATOCRIT 36.2 % (32.4-45.2); HEMOGLOBIN 11.8 GM/dL (10.7-15.3); LYMPH % 40.2 % (8-40); MCH 22.6 pg (25.7-33.7); MCHC 32.7 g/dl (32.0-36.0); MEAN CELL VOLUME 68.9 fl (80-96); MEAN PLT VOLUME 8.1 fl (7.5-11.1); MONO % 6.2 % (3.8-10.2); NEUT % 51.9 % (42.8-82.8); PLATELET COUNT 191 K/MM3 (134-434); RBC 5.25 M/mm3 (3.60-5.2); RDW 14.3 % (11.6-15.6); WHITE BLOOD COUNT 7.9 K/mm3 (4.0-10.0)
[2019-08-02 14:00] LABS: ALBUMIN 3.7 g/dl (3.4-5.0); CALCIUM 8.6 mg/dL (8.5-10.1); CREATININE 0.8 mg/dL (0.55-1.3); POTASSIUM 3.7 mmol/L (3.5-5.1); TOT PROT 7.1 g/dl (6.4-8.2)
[2019-08-02] MEDS ORDERED: METOCLOPRAMIDE HCL 5 MG/5 ML UNIT DOSE CUP PO ONE (14:15)
--- NOTE | 2019-08-02 14:28 | PDOC ---
Attending Attestation - Resident Resident Name: Werner Foy - ED Attending Attestation I have performed the following: I have examined & evaluated the patient, The case was reviewed & discussed with the resident, I agree w/resident's findings & plan - HPI HPI: 08/02/19 15:16 Ms. Marrero is a 44 y/o female with PMH significant for heart palpitations and anxiety, presenting today for vaginal discharge x 3 days. Reports that over the past 6 months she has had yellow vaginal discharge after having sexual intercourse. Reports intermittent suprapubic pain. Denies dysuria or hematuria, but reports that she has had UTIs in the past. She has seen her PCP and was given metronidazole, which she feels did not help resolve her symptoms. also been on azithromycin x 3 days for sinusitis. She also reports mild frontal headache and lightheadedness over the past couple of days. No chest pain/shortness of breath. No falls. Reports mild nausea, no vomiting. Sexual Hx: monogamous with 1 male spouse, 3 kids, no STIs LMP: 2 weeks ago - Physicial Exam PE: 08/02/19 14:27 Agree with the resident's HPI and PE as documented in the electronic medical record. NAD, well appearing, EOMI, PERRL, nl conjunctiva, anicteric; neck supple. lungs clear, RRR, abdomen soft nontender. no rebound, guarding. Back nontender. BURRIS x4, no focal neuro deficits. No peripheral edema. normal color for ethnicity , WWP. pelvic exam by resident, +thick cottage cheese white discharge. done by resident see note. 08/02/19 15:19 - Medical Decision Making 08/02/19 14:27 Vital Signs Temp Pulse Resp BP Pulse Ox 98.3 F 67 19 156/82 100 08/02/19 12:23 08/02/19 12:23 08/02/19 12:23 08/02/19 12:23 08/02/19 12:23 EKG sinus rhythm, stress test in 2017 was normal with preserved EF. EKG here is sinus rhythm at 60 bpm. Electrolytes, CBC all within normal limits. Urinalysis Negative for any infection, STD testing has been sent. Pelvic exam done by resident reveals thick cottage cheese material that is white, consistent with candidiasis so we will treat with oral Diflucan. This is likely secondary to recent antibiotic use about 3 days ago on azithromycin for sinusitis. Patient instructed she can take probiotics, proper hygiene and no douching or extensive vaginal cleaning. Avoid any scented materials as she may have sensitivity to certain products that patient states she may have. Discharge home, negative test. BUSINESS EDUCATION TEACHER referrals are also given. Stable for discharge, return precautions. Patient made aware of impression and plan. 08/02/19 15:19 Heart Score/ECG Review #1 ECG reviewed & interpreted by me at: 13:25 General ECG Interpretation: Sinus Rhythm, Normal Rate, Normal Intervals 08/02/19 14:27 EKG normal sinus rhythm 60 bpm, no interval abnormalities, narrow QRS, ST and T wave segments and morphology normal. Nonspecific T wave abnormalities
[2019-08-02] MEDS ORDERED: METOCLOPRAMIDE HCL INJECTION 10 MG/2 ML VIAL IVPUSH ONE (14:44)
[2019-08-02] MEDS ORDERED: METOCLOPRAMIDE HCL INJECTION 10 MG/2 ML VIAL ONE (14:47)
[2019-08-02 14:54] LABS: PH,URINE 6.5 (5.0-8.0); URINE APPEARANCE CLOUDY; URINE BILIRUBIN NEGATIVE (NEGATIVE); URINE COLOR YELLOW; URINE GLUCOSE (UA) NEGATIVE (NEGATIVE); URINE KETONE NEGATIVE (NEGATIVE); URINE LEUK ESTERASE NEGATIVE (NEGATIVE); URINE NITRITE NEGATIVE (NEGATIVE); URINE PROTEIN NEGATIVE (NEGATIVE); URINE UROBILINOGEN 0.2 mg/dL (0.2-1.0)
[2019-08-02] MEDS ORDERED: FLUCONAZOLE 150 MG TABLET PO ONE (15:04)
[2019-08-02] MEDS ORDERED: FLUCONAZOLE 100 MG TABLET (UD) ONE (15:27)
[2019-08-02 15:37] VITALS: BP 140/80; PULSE 72; TEMP 98.1
--- NOTE | 2019-08-04 10:25 | EKG ---
Test Reason : Blood Pressure : / mmHG Vent. Rate : 060 BPM Atrial Rate : 060 BPM P-R Int : 160 ms QRS Dur : 096 ms QT Int : 420 ms P-R-T Axes : 039 023 027 degrees QTc Int : 420 ms NORMAL SINUS RHYTHM NORMAL ECG WHEN COMPARED WITH ECG OF 02-JUN-2018 14:44, NO SIGNIFICANT CHANGE WAS FOUND Confirmed by ANG WONG MD ([id number]) on 08/04/2019 10:24:33 AM Referred By: Confirmed By:ANG WONG MD
== END 2019-08-02 15:40 | disposition home or self-care (01) ==
LOC: JER 11:49
PROC: 3E033GC Introduction of Other Therapeutic Substance into Peripheral Vein, Percutaneous Approach (ICD-10-PCS; principal; 2019-08-02)
DX: B37.3 Candidiasis of vulva and vagina (principal); I10 Essential (primary) hypertension; D64.9 Anemia, unspecified; I34.1 Nonrheumatic mitral (valve) prolapse; F41.9 Anxiety disorder, unspecified; Z88.0 Allergy status to penicillin; Z90.49 Acquired absence of other specified parts of digestive tract
CPT/HCPCS: 36415; 80053; 81003; 84703; 85025; 87086; 87491; 87591; 93005; 93010; 96374; 99284-25

== ENCOUNTER 2020-09-13 13:32 | Emergency (ER) | payer OTHER ==
[2020-09-13 13:39] VITALS: TEMP 97.3; BMI 24.3
[2020-09-13] MEDS ORDERED: ACETAMINOPHEN 1000 MG/100 ML VIAL (NON FORMULARY) IVPB ONE (14:24)
[2020-09-13] MEDS ORDERED: ACETAMINOPHEN INJECTION 100 ML IVPB ONE (15:07)
[2020-09-13 15:14] LABS: BASO % 0.1 % (0-2.0); EOS % 0.8 % (0-4.5); HEMATOCRIT 38.8 % (32.4-45.2); HEMOGLOBIN 11.9 GM/dL (10.7-15.3); LYMPH % 35.6 % (8-40); MCH 21.3 pg (25.7-33.7); MCHC 30.7 g/dl (32.0-36.0); MEAN CELL VOLUME 69.4 fl (80-96); MEAN PLT VOLUME 8.2 fl (7.5-11.1); MONO % 4.5 % (3.8-10.2); PLATELET COUNT 211 K/MM3 (134-434); RBC 5.59 M/mm3 (3.60-5.2); WHITE BLOOD COUNT 7.9 K/mm3 (4.0-10.0)
[2020-09-13 15:25] LABS: HCG,QUALITATIVE URINE Negative
[2020-09-13 15:28] LABS: POTASSIUM 3.6 mmol/L (3.5-5.1)
[2020-09-13 15:29] LABS: PH,URINE 6.5 (5.0-8.0); URINE APPEARANCE CLEAR; URINE BILIRUBIN NEGATIVE (NEGATIVE); URINE COLOR YELLOW; URINE GLUCOSE (UA) NEGATIVE (NEGATIVE); URINE KETONE NEGATIVE (NEGATIVE); URINE LEUK ESTERASE 1+ (NEGATIVE); URINE NITRITE NEGATIVE (NEGATIVE); URINE PROTEIN NEGATIVE (NEGATIVE); URINE UROBILINOGEN 0.2 mg/dL (0.2-1.0)
[2020-09-13 15:30] LABS: CALCIUM 8.9 mg/dL (8.5-10.1)
[2020-09-13 15:31] LABS: BLOOD UREA NITROGEN 6.4 mg/dL (7-18)
[2020-09-13 15:34] LABS: CREATININE 0.7 mg/dL (0.55-1.3)
[2020-09-13 15:35] LABS: BILIRUBIN,TOTAL 0.6 mg/dL (0.2-1); TOT PROT 7.5 g/dl (6.4-8.2)
[2020-09-13 17:24] LABS: ANISOCYTOSIS 1+; MACROCYTOSIS 0; OVALOCYTE 1+; PLATELET ESTIMATE NORMAL
[2020-09-13 19:07] VITALS: BP 144/90; PULSE 73
== END 2020-09-13 19:13 | disposition home or self-care (01) ==
LOC: JERFT 13:32
PROC: 3E0333Z Introduction of Anti-inflammatory into Peripheral Vein, Percutaneous Approach (ICD-10-PCS; principal; 2020-09-13)
DX: R30.0 Dysuria (principal); R14.0 Abdominal distension (gaseous); R11.0 Nausea
CPT/HCPCS: 36415; 74177-TC; 76856-TC; 80053; 81003; 83690; 84703; 85025; 87086; 99285-25; J0131